=== PATIENT | male | born 1975 | race Caucasian/White ===

== ENCOUNTER 2023-09-14 10:28 | Emergency (ER) | payer BC ==
[2023-09-14 10:35] VITALS: BP 150/91; PULSE 56; RESP 18; TEMP 97.6; BMI 27.2
[2023-09-14] MEDS ORDERED: KETOROLAC TROMETHAMINE 30 MG/1 ML VIAL ONE (11:17)
[2023-09-14] MEDS: KETOROLAC TROMETHAMINE 30 MG/1 ML VIAL IM ONE (11:22)
== END 2023-09-14 12:27 | disposition home or self-care (01) ==
LOC: JER 10:28 → JERFT 10:28
PROC: 3E0233Z Introduction of Anti-inflammatory into Muscle, Percutaneous Approach (ICD-10-PCS; principal; 2023-09-14)
DX: M79.645 Pain in left finger(s) (principal); M79.89 Other specified soft tissue disorders
CPT/HCPCS: 99284-25